=== PATIENT | female | born 1985 | race Caucasian/White ===

== ENCOUNTER 2025-03-31 08:16 | Observation (INO) | payer OTHER, SELFPAY ==
[2025-03-31] VITALS (20 sets, daily range): BP systolic 77–108; BP diastolic 42–75; PULSE 68–84; RESP 15–18; TEMP 34.8–37.3; O2SAT 98–100; BMI 31.4; BMI 30.3
--- NOTE | 2025-03-31 08:31 | ED.RN ---
paged Dr Mckeon
--- NOTE | 2025-03-31 08:37 | ED.RN ---
Dr Mckeon called back
[2025-03-31 08:56] LABS: Hematocrit 30.6 % (37-47); Hemoglobin 10.3 g/dL (12.0-15.0); Immature Granulocytes Count 0.170 X10^3/uL (0.0-0.0); Mean Corp Hgb Conc 33.7 g/dL (32-36); Mean Corpuscular Volume 87.7 fL (81-99); Mean Platelet Vol. 9.9 fl (6.2-12.0); NRBC Flagged by Analyzer 0 % (0-5); Platelet Count 318 K/mm3 (150-450); RBC Distribution Width CV 12.7 % (11.6-14.6); RBC Distribution Width SD 40.5 fl (35.1-43.9); Red Blood Count 3.49 M/mm3 (4.2-5.4); White Blood Count 21.0 K/mm3 (4.4-11.0)
--- NOTE | 2025-03-31 09:06 | ED.RN ---
First unit of blood started at 0845 put on a pressure bag second bag sent with surgery staff.
--- NOTE | 2025-03-31 09:21 | PCM.PRE.AN2 ---
ASA Classification* ASA Classification ASA Classification: 3 and E Assessment & Plan Anesthesia* Anesthesia Assessment Anesthesia Assessment: Discussed sedation and/or anesthesia options, risks, benefits, and alternatives with patient/parents/legal guardian/POA. Questions invited. The patient/parents/legal guardian/POA seems to understand and agrees to proceed with anesthesia plan. Reviewed the physical assessment, medical history, allergy history and patient home medications list prior to surgery/procedure/anesthetic and documented any changes. Performed airway and anesthesia risk assessments. Anesthesia Type Anesthesia Type: General History Source History Obtained from:: Patient and Chart Anesthesia Focused Assessment* Temperature: 94.8 F Pulse Rate: 84 Blood Pressure: 93/60 Respiratory Rate: 18 Pulse Ox: 100 Oxygen Delivery Method: Room Air Airway Assessment Mouth opens: >3 cm Mallampati Score: II Teeth Condition: Dentures (Patient has full upper and lower dentures. They are out.) Neck Range of motion (ROM): Full ROM Labs Anesthesia Preop lab: CBC WBC 21.0 K/mm3 (4.4-11.0) H 03/31/25 08:36 03/31/25 RBC 3.49 M/mm3 (4.2-5.4) L 03/31/25 08:36 03/31/25 Hgb 10.3 g/dL (12.0-15.0) L 03/31/25 08:36 03/31/25 Hct 30.6 % (37-47) L 03/31/25 08:36 03/31/25 Plt Count 318 K/mm3 (150-450) 03/31/25 08:36 03/31/25 CHEMISTRY Potassium Pending 03/31/25 08:36 03/31/25 Sodium Pending 03/31/25 08:03/31/25 BUN Pending 03/31/25 08:03/31/25 Creatinine Pending 03/31/25 08:03/31/25 Glucose Pending 03/31/25 08:03/31/25 COAG HCG, Quant Pending 03/31/25 08:36 03/31/25 Pre-Assessment Diagnosis/Proposed Procedure Planned Operative Procedure(s): suction D&C. Anesthesia History Anesthesia History - science and operations officer: Anesthesia History - science and operations officer Hx Hospitalization Any Problems With Anesthesia slow to wake up. Weak. Had to stay overnight. Cholinesterase deficiency You/Your Family Experience fever (hyperthermia) with Relationship Recent Exposure to Contagious Disease Does patient have nerve stimulator Patient instructed to have device shut off --Does patient have Pacemaker or ICD? When Was Last Pacemaker Check QUESTION #4 FULL TEXT: You/Your Family Experience fever (hyperthermia) with Anesthesia Last Oral Intake Last Oral intake: Last Oral Intake NPO since Meds taken in AM with sips of water? Meds patient instructed to take am of surgery Any additional information?: Yes NPO since: 00:00 Meds taken in AM with sips of water?: No PONV PONV - science and operations officer: PONV - science and operations officer Female HX of Motion Sickness HX of N/V After Surgery Non-Smoker Duration of Surgery greater than 60 minutes Number of Risk Factors PONV Score Height & Weight Height & Weight: Anesthesia: Height & Weight Height 5 ft 3 in 03/31/25 08:35 Weight: 80.3 kg 03/31/25 08:35 Body Mass Index (BMI) 31.4 03/31/25 08:35 Respiratory Assessment Respiratory Assessment - science and operations officer: Respiratory Tract Infection Hx - science and operations officer Hx Respiratory Tract Infection No STOP Sleep Apnea STOP Sleep Apnea - science and operations officer: STOP Sleep Apnea - science and operations officer Hx Hypertension Hx Sleep Apnea CPAP BIPAP Do you snore loudly (louder than talking or can be heard Do you often feel tired/ fatigued/ sleepy during daytime? Has anyone observed you stop breathing during sleep? STOP Results QUESTION #5 FULL TEXT : Do you snore loudly (louder than talking or can be heard through closed doors)? Tobacco Use History Tobacco Use History - science and operations officer: Tobacco Use History - science and operations officer Tobacco Use Smoking Status Never smoker 03/31/25 08:42 Hx Tobacco Use Years Smoking Packs Smoked per Day Smoking Cessation Date was within the last 15 years Hx Smoking Cessation Date Hx Smoking Cessation Counseling Hematologic Medial History Hematologic Hx - science and operations officer: Hematologic Medical Hx - remote mortgage underwriter Hx of Blood Transfusion Hx of Transfusion in last 3 Months Date of Last Transfusion (if within last 3 months) Ever experience any problems with transfusion(s)? Specify any problems Hx of Preganancy in last 3 Months Nurse Filling Out Transfusion & Questions: Date: Time: Patient unable to answer at this time (ie. confused, unrespo /Reproduction History /Reproductive History - science and operations officer: /Reproductive Hx- science and operations officer Hx Now Yes 03/31/25 08:43 Gestational Age (in weeks): EDC: Hx 12 03/31/25 08:43 Hx Para Hx Section SAB No 03/31/25 08:35 Active Medications Active Medications: Current Medications Generic Name Dose Route Start Last Admin Trade Name Freq PRN Reason Stop Dose Admin Norepinephrine Bitartrate 8 mg 250 mls @ 9.375 mls/hr 03/31/25 08:35 / Sodium Chloride CONT INF .[id number] NOAH Protocol 5 MCG/MIN Cefotetan Disodium 2 gm/ 100 mls @ 200 mls/hr 03/31/25 09:30 Sodium Chloride IV 03/31/25 09:59 INTRAOP ONE Metronidazole 500 mg in 100 mls @ 100 mls/hr 03/31/25 09:30 Flagyl IV 03/31/25 10:29 INTRAOP ONE Tranexamic Acid 1,000 mg/ 110 mls @ 660 mls/hr 03/31/25 09:30 Sodium Chloride IV 03/31/25 09:39 PREOP ONE Misoprostol 1,000 mcg 03/31/25 09:30 Misoprostol 200 Mcg Tablet VAGINAL 03/31/25 09:31 X1 ONE [facility] Medical History (Updated 03/31/25 @ 09:[address] Pantera Regan MD) UTI (urinary tract infection) Asthma affecting in first trimester Surgical History (Updated 03/31/25 @ 09:[address] Pantera Regan MD) S/P cholecystectomy Social History Smoking Status: Never smoker Review of Systems (Anesthesia) ROS Narrative System reviewed and no additional complaints, except as documented.
[2025-03-31 09:22] LABS: hCG Titer Quant., Serum 2048 mIU/mL (<9 non-preg)
--- NOTE | 2025-03-31 09:26 | PCM.HP.OB ---
HPI - General General Date of Admission: 03/31/25 Date of Service: 03/31/25 Chief Complaint: consult in ED for vaginal bleeding in HPI Narrative MAURA MOSCOSO, is a 39 F who presents to ED this am w/ vaginal bleeding. Patient had June reported that she had some light vaginal bleeding yesterday she is approximately 11 weeks . She then began bleeding very heavily at 5:30 AM. She is drinking chlorophyll overnight to help with the anemia after the bleeding was done and also drink some tea that was supposed to help with the bleeding. At 5:30 AM she had a large gush of blood in a puddle of blood on the floor and began to feel lightheaded in the squad was called. She arrived to the emergency room and was hypotensive and pale and bleeding heavily from her vagina and I was called emergently. When I arrived the was answering questions the patient was minimally responsive very pale and lethargic in the bed and did not open her eyes. When I would ask her question she would mumble and incomprehensible answer. According to the the patient has been 15 times and had 12 vaginal deliveries no C-sections. I was called for consultation by the emergency room physician and findings and plan were discussed and she was emergently transported to the surgery department. I notified the operating room team on the way to the hospital. [facility] Medical History (Updated 03/31/25 @ 09:[address] Sheri Mckeon MD) UTI (urinary tract infection) Asthma affecting in first trimester Surgical History (Updated 03/31/25 @ 09:[address] Pantera Regan MD) S/P cholecystectomy Social History Smoking Status: Never smoker ROS Review of Systems ROS Unobtainable: due to mental status Vital Signs Vital Signs Vital Signs: 03/31/25 08:35 03/31/25 08:59 03/31/25 09:03 Temperature 94.6 F L 94.8 F L Temperature Source Axillary Pulse Rate 77 84 84 Respiratory Rate 16 18 18 Blood Pressure 77/42 L 99/60 93/60 Blood Pressure Mean 53 73 71 Pulse Ox 100 100 100 Oxygen Delivery Method Room Air Room Air Weight Weight: 80.3 kg Body Mass Index (BMI) 31.4 Physical Exam Const Constitutional Narrative: Pale, lethargic, minimally responsive eyes are closed General Appearance: lethargic Exam Limitations: altered mental status Nutritional Appearance: overweight HEENT normocephalic Head and Scalp: atraumatic Neck supple and thyroid normal Chest palpation of chest normal Resp Resp Narrative: Shallow breaths, no retractions or stridor, lungs clear Cardio regular rate and regular rhythm GI normal to inspection, nondistended, normoactive bowel sounds Narrative: Large amount of blood, no internal pelvic exam done in the emergency room. Grossly normal external genitalia Labs Labs Labs: Blood Type Pending Antibody Screen Pending Hct 30.6 % (37-47) L Hgb 10.3 g/dL (12.0-15.0) L Assessment & Plan (1) Acute blood loss anemia: (2) Incomplete with complication: COMMENT: Response and alternatives to suction D&C were discussed with the patient but she was very lethargic at the time. I reviewed them with her . His questions were answered to his satisfaction and consent was signed. She was consented for suction dilation and curettage, consents to blood products as needed, understands risk of possible hysterectomy if other conservative measures fail to control the hemorrhage. Anesthesia and operating team are aware. Will continue with trauma blood. Second IV line to be placed in the OR due to difficult access. (3) High risk multigravida in first trimester: (4) 11 weeks gestation of :
[2025-03-31 09:27] LABS: AST(SGOT) 16 U/L (<=31); Alanine Aminotransfer ALT/SGPT 15 U/L (<=34); Albumin, Serum 3.4 g/dL (3.5-5.0); Alkaline Phosphatase 57 U/L (35-104); Anion Gap 11 (5-15); BUN 18 mg/dL (4-19); BUN/Creat Ratio 38.7 RATIO (10-20); Calcium,Total 7.8 mg/dL (7.6-11.0); Carbon Dioxide 16.9 mmol/L (21.0-32.0); Chloride 102 mmol/L (98-108); Estimated Creatinine Clearance 159.45 ml/min (50-250); Globulin 2.4 g/dL (2.2-4.2); Glucose 163 mg/dL (70-99); Potassium 3.5 mmol/L (3.3-5.1)
--- NOTE | 2025-03-31 09:30 | POC_PTH ---
PATIENT: MAURA MOSCOSO LOC: MS3 U#:[id number] AGE/SX: 39/F ROOM: HI310 RE03/31/[address]: Dr. Sheri Mckeon MD : 1985 BED: 1 DIS: 04/01/2025 SPEC #: [id number] RECD: 03/31/25 11:00 STATUS: LUC ANN #: [id number] CATHERINE: 03/31/25 09:[address]: Sheri Mckeon DEPT: SURGICAL PATHOLOGY RECD BY: Dami Aguero ENTERED: 03/31/25 13:15 SP TYPE: PROD CONC OTHR DR: No Primary Care Phys Tissues: A - Product of conception, NOS Procedures: Surgery Specimen Level IV HEADER OPERATION: Dilation and curettage, suction PRE-OP DIAGNOSIS: Missed TISSUE SUBMITTED: A- Products of conception MICROSCOPIC DIAGNOSIS A. Uterine contents, dilation and suction curettage: * Acutely inflamed and focally necrotic decidua, immature placental villi, and clotted blood, consistent with products of conception from a missed MICROSCOPIC DESCRIPTION Slides are reviewed. GROSS DESCRIPTION A. Received in formalin labeled with the patient's name and date of . Designated as products of conception is a 38 g, 8.9 x 7.9 x 1.7 cm aggregate of pink-red tissue fragments and papuliferous tissue fragments. parts are not present. Crusher Plant Operator sections are submitted in [address] 03/31/2025PT:[id number]
[2025-03-31] MEDS: fentaNYL 100 MCG/2 ML Ampul 25 MCG IV (09:33)
[2025-03-31] MEDS: Lidocaine 1% (5 ml sdv) 5 ML Vial IV (09:33)
[2025-03-31] MEDS: TRANEXAMIC ACID 1,000 MG in 0.9% Normal Saline (100mL Bag) 100 ML 660 MG IV (09:50)
[2025-03-31 09:52] LABS: Prothrombin Time (Protime)PT. 14.1 SECONDS (11.7-14.9)
[2025-03-31 09:53] LABS: Partial Thromboplast Time 22.1 Seconds (24.1-36.2)
[2025-03-31] MEDS: TRANEXAMIC ACID 1,000 MG/10 ML ML 1000 MG IV (09:57)
[2025-03-31 10:06] LABS: Hematocrit 32.1 % (37-47); Hemoglobin 10.9 g/dL (12.0-15.0); Mean Corp Hgb Conc 34.0 g/dL (32-36); Mean Corpuscular Volume 86.5 fL (81-99); Mean Platelet Vol. 10.3 fl (6.2-12.0); Platelet Count 280 K/mm3 (150-450); RBC Distribution Width CV 13.6 % (11.6-14.6); RBC Distribution Width SD 43.0 fl (35.1-43.9); Red Blood Count 3.71 M/mm3 (4.2-5.4); White Blood Count 20.4 K/mm3 (4.4-11.0)
--- NOTE | 2025-03-31 10:08 | OP.PCM_ITS ---
Problems Associated Problem List Diagnoses (1) 11 weeks gestation of : (2) High risk multigravida in first trimester: (3) Incomplete with complication: (4) Acute blood loss anemia: (5) Hypovolemic shock: Operative Report (Standard) Operative Information Date of Procedure: 03/31/25 Pre-Operative Diagnosis: acute blood loss anemia, hypovolemic shock due to bleeding from incomplete spontaneous Post-Operative Diagnosis: same Surgery/Procedure Performed: Suction dilation and curettage health commissioner: Yes Cigarette Machine Operator: MELISSA Wilkinson Tasks completed by ssn/ssbn assistant navigator: Retracting Additional dyer assistant?: No Type of Anesthesia: General RN Documented Start/Stop Times: Operation Date: 03/31/25 09:30 Case Time Anesthesia Start 03/31/25 09:25 Into Room 03/31/25 09:25 Procedure Start 03/31/25 09:42 Procedure End 03/31/25 09:53 Procedure Start Time: :42 Procedure Stop Time: :53 Select all DRAINS/GRAFTS/IMPLANTS that apply: None Special Medications: TXA, methergine and misoprostol Estimated Blood Loss: 100 in oR Fluids Replaced: 500 cc lr and 1 unit PRBCs Specimen collected: Yes Description of specimen(s) removed: POCs Description of surgery: The patient arrived to the operating room instilled a large amount of vaginal bleeding. The emergency room estimate about a liter of blood in their department, there is approximately 500 cc of blood on the pads and in her vagina when she arrived to the operating room. She was prepped and draped in a dorsolithotomy position. A brief abdominal ultrasound was performed and showed some heterogeneous debris and clot no embryo in the uterus. The cervix was open 1-1/2 cm and there was active bleeding from the cervix. A weighted speculum was placed in the vagina and the anterior lip of the cervix was grasped with a single-tooth tenaculum. A 10 mm suction curette was placed to the uterine fundus and the suction was created. Several passes were made to remove clots and products of conception. When minimal tissue was returning a gentle sharp curettage was then done of the uterine cavity. The uterine cry was appreciated and another gentle pass was made with the suction curette. At this point there is no active bleeding from the uterus and minimal blood and no further products of conception were removed. Another ultrasound was performed and bright white endometrial stripe was less than 1 cm and no clots or debris was noted left in t he endometrial cavity. Patient had been given Methergine IM x 1. I then placed 1000 mcg of misoprostol rectally the tablets were broken in half. The instruments removed from the cervix and the cervix was observed and no active bleeding was identified. The tenaculum was removed off the cervix and hemostasis of the tenaculum site was assured. Made of the instruments removed from the vagina and the vaginal sweep was completed by me. Sponge and needle counts were correct. The patient was taken to the recovery room in stable condition. Findings: 10 week size uterus, normal cervix and vagina. Specimen: Products of conception Surgical Findings: large amount of vaginal bleeding, products of conception, no embryo noted on US before procedure in or in vaginal clost Complications Complications: No Admit VTE Documentation VTE Present on Admission: No VTE Mechan Device Prophylaxis: SCD's
--- NOTE | 2025-03-31 10:22 | PCM.POST.ANE ---
Anesthesia: Postop Eval I Current Vital Signs Temperature: 97.2 F Pulse Rate: 71 Blood Pressure: 87/60 Respiratory Rate: 16 Pulse Ox: 100 Oxygen Delivery Method: Room Air Assessment Airway patent: Yes Spontaneous unlabored respirations: Yes Mental status: Awake and Calm nausea: No Vomiting: No Anesthesia Complication: No Fluid Hydration Crystalloid volume administer (ml): 600 Total IV fluid infused: 600 Progress Note Anesthesia document: Postop Eval 1 completed: Yes
[2025-03-31] MEDS: Lactated Ringers 1,000 ML 15 ML IV (11:27)
[2025-03-31 11:39] LABS: Prothrombin Time (Protime)PT. 14.1 SECONDS (11.7-14.9)
[2025-03-31 11:40] LABS: Fibrinogen 233 mg/dl (203-444); Partial Thromboplast Time 22.0 Seconds (24.1-36.2)
[2025-03-31 12:04] LABS: Anion Gap 12 (5-15); BUN 17 mg/dL (4-19); BUN/Creat Ratio 29.5 RATIO (10-20); Calcium,Total 7.6 mg/dL (7.6-11.0); Carbon Dioxide 15.6 mmol/L (21.0-32.0); Chloride 105 mmol/L (98-108); Estimated Creatinine Clearance 136.67 ml/min (50-250); Glucose 116 mg/dL (70-99); Potassium 4.1 mmol/L (3.3-5.1)
[2025-03-31 14:21] LABS: Hematocrit 34.2 % (37-47); Hemoglobin 11.9 g/dL (12.0-15.0); Mean Corp Hgb Conc 34.8 g/dL (32-36); Mean Corpuscular Volume 83.2 fL (81-99); Mean Platelet Vol. 9.7 fl (6.2-12.0); Platelet Count 206 K/mm3 (150-450); RBC Distribution Width CV 13.9 % (11.6-14.6); RBC Distribution Width SD 42.2 fl (35.1-43.9); Red Blood Count 4.11 M/mm3 (4.2-5.4); White Blood Count 16.2 K/mm3 (4.4-11.0)
--- NOTE | 2025-03-31 14:29 | POSTOPAN2_ITS ---
Anesthesia Postop Eval I Sum Postop Eval Completion status Anesthesia document: Postop Eval 1 completed: Yes Anesthesia Postop Eval I Summary Anesthesia Postop Eval I Summary: Anesthesia Postop Eval I: Assessment Summary Airway patent Yes 03/31/25 10:25 [email or web address] Spontaneous unlabored Yes 03/31/25 10:25 [email or web address] respirations Mental status Awake,Calm 03/31/25 10:25 [email or web address] nausea No 03/31/25 10:25 [email or web address] Vomiting No 03/31/25 10:25 [email or web address] Anesthesia Postop Eval I: Fluid Summary Crystalloid volume administer 600 03/31/25 10:25 [email or web address] (ml) Colloids volume administered ( ml) Blood Product volume administered (ml) Total IV fluid infused 600 03/31/25 10:25 [email or web address] Anesthesia Postop Eval I: Summary Notes Anesthesia Complication No 03/31/25 10:25 [email or web address] Anesthesia Complication Comment: Post-operative progress note Anesthesia: Postop Eval II Evaluation Mental status: Asleep Pain Level: 0 nausea: No Vomiting: No Progress Note Post-operative progress note: Only complaint is she is thirsty. Complications Anesthesia Complication: No
--- NOTE | 2025-03-31 14:29 | PCM.POSTANE2 ---
Anesthesia Postop Eval I Sum Postop Eval Completion status Anesthesia document: Postop Eval 1 completed: Yes Anesthesia Postop Eval I Summary Anesthesia Postop Eval I Summary: Anesthesia Postop Eval I: Assessment Summary Airway patent Yes 03/31/25 10:25 [email or web address] Spontaneous unlabored Yes 03/31/25 10:25 HAND [email or web address] respirations Mental status Awake,Calm 03/31/25 10:25 [email or web address] nausea No 03/31/25 10:25 HAND [email or web address] Vomiting No 03/31/25 10:25 HAND [email or web address] Anesthesia Postop Eval I: Fluid Summary Crystalloid volume administer 600 03/31/25 10:25 HAND [email or web address] (ml) Colloids volume administered ( ml) Blood Product volume administered (ml) Total IV fluid infused 600 03/31/25 10:25 HAND [email or web address] Anesthesia Postop Eval I: Summary Notes Anesthesia Complication No 03/31/25 10:25 HAND [email or web address] Anesthesia Complication Comment: Post-operative progress note Anesthesia: Postop Eval II Evaluation Mental status: Asleep Pain Level: 0 nausea: No Vomiting: No Progress Note Post-operative progress note: Only complaint is she is thirsty. Complications Anesthesia Complication: No
[2025-03-31 14:31] LABS: Prothrombin Time (Protime)PT. 13.9 SECONDS (11.7-14.9)
[2025-03-31 14:32] LABS: Fibrinogen 236 mg/dl (203-444)
--- NOTE | 2025-03-31 16:12 | ED.VIS.FEGU ---
HPI HPI - Female History of Present Illness Chief Complaint: Vag Bld, Preg Narrative Narrative: Patient is a 39-year-old female, , 3 miscarriages 11 weeks presenting with vaginal bleeding. She has not seen an vp strategy. provides history. States that he think she is about 11 weeks . Started having lower abdominal pain last night. This morning started having brisk vaginal bleeding. EMS was called. They report that she has lost about a liter of blood during transport which was about 45 minutes. Patient is unable to provide history. [facility] Medical History UTI (urinary tract infection) Asthma affecting in first trimester Home Medications ?Medication ?Instructions ?Recorded ?Last Taken ?Type NK 03/31/25 Unknown History Allergy/AdvReac Type Severity Reaction Status Date / Time No Known Allergies Allergy Verified 03/31/25 12:23 Surgical History S/P cholecystectomy Social History Smoking Status: Never smoker ROS ROS ED ROS Narrative see HPI EXAM Physical Exam Narrative Exam Narrative: Vital signs: Reviewed General: Ill appearing. Moaning. HEENT: Head is normocephalic and atraumatic, sinuses nontender, pupils equal round and reactive. Nares are patent. Oropharynx and throat exams normal. Neck: Supple without lymphadenopathy nontender Cardiovascular: Regular rate and rhythm, no murmurs. No rubs or gallops. Normal S1 and S2 Respiratory: Clear to auscultation bilaterally. No wheezes, rales, rhonchi Abdominal: Soft and tender to palpation in lower quadrants. Guarding present. Rebound tenderness present. : completed with RN at bedside, brisk bright red bleeding from cervix. Unable to completely visualize. Significant pooling of blood in vaginal vault. Skin: No rash or redness. Neurological: GCS of 9. No eye opening. Inappropriate verbal response. Localizes to pain. Normal pupil response. The rest of the physical exam is unremarkable Const Vital Signs: 03/31/25 08:35 03/31/25 08:59 03/31/25 09:03 Temperature 94.6 F L 94.8 F L Temperature Source Axillary Pulse Rate 77 84 84 Respiratory Rate 16 18 18 Blood Pressure 77/42 L 99/60 93/60 Blood Pressure Mean 53 73 71 Pulse Ox 100 100 100 Oxygen Delivery Method Room Air Room Air 03/31/25 09:28 Temperature 94.8 F L Temperature Source Pulse Rate 84 Respiratory Rate 18 Blood Pressure 93/60 Blood Pressure Mean Pulse Ox 100 Oxygen Delivery Method Room Air MDM MDM MDM Narrative Medical decision making narrative: Patient is a 39-year-old female, , 3 miscarriages 11 weeks presenting to the ED for vaginal bleeding. Patient was immediately seen on arrival. GCS of 9. Hypotension on arrival at 77/42. Mildly hypothermic at 94.6. Concern for hemorrhagic shock. OB POC ultrasound at bedside showed a large amount of heterogeneous material in the uterus, likely bleeding. Cannot see any free fluid around the uterus concerning for ectopic. I do not see any free fluid on FAST exam. Nothing in the right upper quadrant and Morison's pouch. Pelvic exam with brisk bright red bleeding. Trauma blood was verbally ordered. Labs were verbally ordered. CATTLE EXAMINER, Dr. Mckeon emergently consulted. She will take the patient for D&C. Clinical impression: Hemorrhagic shock Vaginal bleeding Acute blood loss anemia History & Record Review Discussion w/independent historian: EMS personnel and Family Lab Data Attestation: I reviewed the patient's lab results. Labs: Laboratory Results - last 24 hr 03/31/25 03/31/25 08:36 09:49 WBC 21.0 H 20.4 H RBC 3.49 L 3.71 L Hgb 10.3 L 10.9 L Hct 30.6 L 32.1 L MCV 87.7 86.5 MCH 29.5 29.4 MCHC 33.7 34.0 RDW Std Deviation 40.5 43.0 RDW Coeff of Hamzah 12.7 13.6 Plt Count 318 280 MPV 9.9 10.3 Immature Gran % (Auto) 0.800 Neut % (Auto) 79.1 H Lymph % (Auto) 15.7 L [place] % (Auto) 3.6 Eos % (Auto) 0.5 Baso % (Auto) 0.3 Absolute Neuts (auto) 16.6 H Absolute Lymphs (auto) 3.31 Nucleated RBC % 0 PT 14.1 Cancelled INR 1.1 Cancelled APTT 22.1 L Cancelled Fibrinogen Cancelled Sodium 130 L Cancelled Potassium 3.5 Cancelled Chloride 102 Cancelled Carbon Dioxide 16.9 L Cancelled Anion Gap 11 Cancelled BUN 18 Cancelled Creatinine 0.48 L Cancelled Estim Creat Clear Calc 159.45 Cancelled Est GFR (MDRD) Non-Af 125 Cancelled BUN/Creatinine Ratio 38.7 H Cancelled Glucose 163 H Cancelled Calcium 7.8 Cancelled Total Bilirubin < 0.15 AST 16 ALT 15 Alkaline Phosphatase 57 Total Protein 5.7 L Albumin 3.4 L Globulin 2.4 Albumin/Globulin Ratio 1.4 HCG, Quant 8 H Blood Type A POSITIVE Antibody Screen NEGATIVE Crossmatch See Detail Critical Care Time Critical Care Time: Yes Critical care time (excluding procedures): 30-74 minutes, Discussing w/Patient &/or Family/Hospital Cleaning Specialist, Discussing w/Consultants and Performing Direct Patient Care at Bedside Discharge Plan Disposition Disposition: Acute Care [facility] Discharge Date/Time: 03/31/25 09:09
--- NOTE | 2025-03-31 18:53 | PCM.PN.BLA ---
Progress Note Patient tired, opens eyes, answers slowly. Mild pain. Denies CP or SOB. Not hungry but denies nausea. Feels weak and tired. at bedsid and says this is much different than her normal disposition> States she took a long time to awaken and be alert after her gallbladder. Physical Exam Narrative General- tired, pale skin warm dry and intact abd- soft, nontender, nondistended, fundus low, minimally palpable consent for sensitive exam- pad w/ minimal blood, dark red and no blood expressed w/ fundal massage attempt. Assessment & Plan Assessment/Plan (1) Hypovolemic shock: PLAN: vitals stable, s/p 2 units prbcs. cont. ivf. Push fluids (2) 11 weeks gestation of : (3) Incomplete with complication: PLAN: pathology pending (4) Acute blood loss anemia: PLAN: improved after her transfusion. Vitals and hgb stable. Recheck in am. Suspect her lethargy/fatigue is due to anesthesia as she had similar experience after her gallbladder surgery. Recommend obs overnight and reeval in am. Hasn't been able to amulate or get up to bathroom yet. Likely d/c in am
[2025-04-01 00:19] LABS: Mucous, Urine 0 SEEN /hpf (<or=2+)
[2025-04-01 00:27] LABS: Color, Urine Straw (Yellow); Glucose, Dipstick Normal (Normal); Ketone-Dipstick Negative (Negative); Leukocyte Esterase-Dipstick Negative /ul (Negative); Nitrite-Dipstick Negative (Negative); Occult Blood-Urine 250 /ul (Negative); Protein-Dipstick 15 mg/dl (Negative); Specific Gravity, Urine 1.010 (1.002-1.030); Urine Bilirubin Dipstick Negative (Negative)
[2025-04-01 00:36] LABS: Red Blood Cells-Urine 0-5 SEEN /hpf (0-5); Squamous Epithelial Cells - UA 0-5 SEEN /hpf (5-10)
[2025-04-01 03:12] VITALS: BP 108/61; PULSE 69; RESP 16; TEMP 37; O2SAT 99
[2025-04-01 06:13] VITALS: BP 100/56; PULSE 65; RESP 16; TEMP 36.7; O2SAT 99
[2025-04-01 07:29] LABS: Hematocrit 28.7 % (37-47); Hemoglobin 9.8 g/dL (12.0-15.0); Mean Corp Hgb Conc 34.1 g/dL (32-36); Mean Corpuscular Volume 83.4 fL (81-99); Mean Platelet Vol. 10.1 fl (6.2-12.0); Platelet Count 234 K/mm3 (150-450); RBC Distribution Width CV 14.6 % (11.6-14.6); RBC Distribution Width SD 43.8 fl (35.1-43.9); Red Blood Count 3.44 M/mm3 (4.2-5.4); White Blood Count 11.8 K/mm3 (4.4-11.0)
[2025-04-01 07:42] VITALS: BP 96/55; PULSE 71; RESP 16; TEMP 37.1; O2SAT 100
--- NOTE | 2025-04-01 07:42 | PCM.DC ---
Discharge Instructions DC O2, CPAP, BIPAP needs Home O2 Discharge instructions: No Dressing / Incision Return to work on:: 04/03/25 May resume sexual activity in: 1-2 weeks Lifting Restrictions: none Dressing / Incision Call your doctor if your incision/area has: Sudden Increased Bleeding and Foul Smelling Discharge Call your doctor if you observe: Fever of 101 or Higher and Using more than 1 pad per hour (for 2 hrs in a row) Follow Up Care Please Follow Up With: Sheri Mckeon MD When: I our office in 1-2 weeks or as needed. Call [phone] to make an appointment or with any concerns. Test Results: Test results from this visit will be discussed in further detail at your follow-up appointment, if applicable. Discharge Plan Admission Admit Date/Time: 03/31/25 09:58 Primary Reason for Your Visit: Suction D&C, acute blood loss anemia from miscarriage Attending Provider: Sheri Mckeon Primary Care Provider: Care Physician,No Primary Discharge Orders/Prescriptions Prescriptions: No Action NK Referrals / Follow Up: Care Physician,No Primary [Primary Care Provider] - Disposition Disposition (needs filled in before D/C Order can be placed): Home, Self Care
--- NOTE | 2025-04-01 07:50 | PCM.PN.BLA ---
Progress Note Pain well controlled, average lochia. States she feels weak. Denies n/v,. Denies [place]. Physical Exam Narrative awake, NAD, answers appropriately color much improved skin warm, dry and intact consent for sensitive exam- minimal blood on pad. abd- soft, minimally tender, no blood expressed Assessment & Plan Assessment/Plan (1) Hypovolemic shock: (2) 11 weeks gestation of : (3) High risk multigravida in first trimester: (4) Incomplete with complication: (5) Acute blood loss anemia: PLAN: minimal anemia, cont. PNV at home d/w patient she needs to get up to chair and to bathroom this am. She was moving hands and feet when I arrived to room. d/c home later today
[2025-04-01 08:29] LABS: Anion Gap 11 (5-15); BUN 9 mg/dL (4-19); BUN/Creat Ratio 18.4 RATIO (10-20); Calcium,Total 8.5 mg/dL (7.6-11.0); Carbon Dioxide 20.7 mmol/L (21.0-32.0); Chloride 106 mmol/L (98-108); Estimated Creatinine Clearance 153.54 ml/min (50-250); Glucose 110 mg/dL (70-99); Potassium 3.6 mmol/L (3.3-5.1)
[2025-04-01 08:35] LABS: Fibrinogen 218 mg/dl (203-444)
--- NOTE | 2025-04-01 09:11 | CASEMGMT ---
ROXIE CM into pt room, provided pt with a local healthcare directory provider list. Pt denies any further homegoing needs at this time. Pt present in room.
== END 2025-04-01 11:30 | disposition home or self-care (01) ==
LOC: ED 09:01 → SDC 09:02 → MS3 11:59
PROVIDERS: Family Medicine; Admitting Provider Obstetrics & Gynecology; Emergency Provider Student in an Organized Health Care Education/Training Program; Visit Provider Obstetrics & Gynecology
PROC: (CPT 59812; principal; 2025-03-31 09:15)
DX: O03.31 Shock following incomplete spontaneous abortion (principal); Z3A.11 11 weeks gestation of pregnancy; D62 Acute posthemorrhagic anemia; O99.011 Anemia complicating pregnancy, first trimester; O99.511 Diseases of the respiratory system complicating pregnancy, first trimester; J45.909 Unspecified asthma, uncomplicated
CPT/HCPCS: 59812; 01965; 36415; 36430; 80048; 80053; 81001; 84702; 85025; 85027; 85384; 85610; 85730; 86850; 86900; 86901; 86920; 88305; 99221; 99284; P9016; A4216; G0378; J2405